=== PATIENT | female | born 1945 | race Caucasian/White ===

== ENCOUNTER → 2024-07-10 13:26 | Outpatient (REF) | payer MEDICARE, SELFPAY | LOC: HWRAD 13:26 | PROVIDERS: ATTENDING PHYSICIAN Internal Medicine Critical Care Medicine | DX: R91.1 Solitary pulmonary nodule (principal); Z01.812 Encounter for preprocedural laboratory examination | CPT/HCPCS: 71250 ==

== ENCOUNTER 2024-07-16 17:56 | Inpatient (IN) | payer MEDICARE, SELFPAY ==
[2024-07-10 16:55] LABS: INR 1.06; PT 13.9 Sec (11.4-14.6)
[2024-07-10 16:56] LABS: APTT 34.1 Sec (23.4-35.0)
[2024-07-16] VITALS (20 sets, daily range): BP systolic 104–178; BP diastolic 64–119; BMI 32.8
[2024-07-16] MEDS: DUONEB 3 ML INH ×2 (15:00→19:23)
[2024-07-16] MEDS: SOLU-MEDROL PF 40 MG IV (16:13)
--- NOTE | 2024-07-16 16:14 | SUR.PHASEI ---
Patient cleared for transfer to [facility] by Dr Richardson. Sats borderline 89-92. Patient is o2 dependant, on her baseline of 4/L. Patient also seen by Dr Jackman. Batsheva newsome RN BSN,.
[2024-07-16] MEDS: VENTOLIN NEBULES 2.5 MG INH (16:21)
--- NOTE | 2024-07-16 16:58 | W.PN.UPDATE ---
Update Note
Progress Note Update
Pt underwent robotic bronchoscopy today for concerning RLL nodule with mediastinal lymphadenopathy. Robotic bronch had no immediate complications, however post procedure the pt was more SOB and requiring up to 5L/min with sats low 90s. Daughter
updated at bedside, and all questions were answered. The daughter would feel more comfortable if Donna was monitored overnight. Call made out to admitting hospitalist, Dr. Patterson, who will take care of admission. Of note, post procedure CXR
without PTX. Pulmonary service to be consulted and we will follow along.
--- NOTE | 2024-07-16 17:03 | HPS.HSE ---
Family Physician
-
Family Physician: NO INTERVIEW UNKNOWN
Chief Complaint
-
Hypoxia with SOB post procedure
History of Present Illness
78 years old female who underwent robotic bronchoscopy for right lower lung nodule with mediastinal for neuropathy by Dr. Brink on July 16, 2024. Postprocedure, patient experienced shortness of breath and required mid flow oxygen from her
baseline 3 to 4 L at home. Patient currently in postprocedure unit, she denies chest pain or tightness. She admitted to shortness of breath at times but not currently. She also reported infrequent dizzy spells. She reported history of falls,
last fall was on June 26, 2024 with no significant injury. Patient reported that her falls always related to feeling dizzy with head spinning sensation.
Patient has history of COPD. Postprocedure chest radiography did not show pneumothorax. Currently her oxygen saturation is 96% on 4 L which she seems back to her baseline.
Medical History
Past Medical History
Past Medical History: Reports Other (COPD, gastric ulcer, insomnia, ambulatory dysfunction, heart failure, hypertension, GERD, bradycardia, depression, anxiety disorder, chronic hypoxic respiratory failure)
Past Surgical History: Reports Other (No recent major surgery)
Social History
Tobacco: Former Smoker
Alcohol: None
Drug: None
Living: [facility]
Employment: Retired
Family History
Family History: Other (Mother had hypertension, sister had lung cancer, father had melanoma.)
Allergies / Home Medications
Allergies reflects when Allergies were last updated in [facility].
Home Medications with original date entered in [facility]
Allergy/Medication List:
Allergies
Allergy/AdvReac Type Severity Reaction Status Date / Time
No Known Allergies Allergy Verified 07/16/24 11:21
Home Medications
acetaminophen 325 mg tablet 650 mg PO Q6H PRN pain 07/11/24
albuterol sulfate 5 mg/mL(0.5 %) solution for nebulization 2.5 mg inhalation TID 07/11/24
albuterol sulfate 90 mcg/actuation aerosol inhaler (Ventolin HFA) 1 inh inhalation Q6H PRN shortness of breath 07/11/24
amlodipine 2.5 mg tablet 2.5 mg PO HS 07/11/24
aspirin 81 mg capsule 81 mg PO DAILY 07/11/24
atorvastatin 20 mg tablet 20 mg PO HS 07/11/24
bisacodyl 10 mg rectal suppository (Dulcolax (bisacodyl)) 10 mg AR DAILY PRN constipation 07/11/24
fluticasone fur. 200 mcg-umeclid 62.5 mcg-vilant 25 mcg inhalat.powder (Trelegy Ellipta) 1 inh inhalation DAILY 07/11/24
fluticasone propionate 50 mcg/actuation nasal spray,suspension 1 spray intranasal DAILY 07/11/24
furosemide 20 mg tablet 20 mg PO DAILY 07/11/24
guaifenesin 600 mg tablet, extended release 12 hr (Mucinex) 600 mg PO BID 07/11/24
hydromorphone 2 mg tablet 2 mg PO Q12H severe pain 07/11/24
losartan 100 mg tablet 100 mg PO DAILY 07/11/24
magnesium hydroxide 400 mg/5 mL oral suspension (Milk of Magnesia) 400 mg PO PRN PRN constipation 07/11/24
magnesium oxide 400 mg PO DAILY 07/11/24
meclizine 25 mg tablet 25 mg PO TID 07/11/24
melatonin 3 mg tablet 6 mg PO HS PRN sleep 07/11/24
pantoprazole 40 mg tablet,delayed release 40 mg PO BID 07/11/24
sertraline 100 mg tablet 100 mg PO DAILY 07/11/24
sertraline 25 mg tablet 25 mg PO DAILY 07/11/24
sodium phosphates 19 gram-7 gram/118 mL enema (Fleet Enema) 118 ml AR PRN PRN constipation 07/11/24
Review of Systems
-
History Source: Patient
A 12 point ROS was completed and negative except as noted: Yes
Constitutional: Denies Fever or Chills
EENT: Denies Sore Throat
Respiratory: Reports Trouble Breathing; Denies Cough
Cardiac: Denies Chest Pain
Abdomen/GI: Denies Abdominal Pain
: Reports Incontinence; Denies Dysuria
Musculoskeletal: Denies Muscle Stiffness or Edema
Neurological: Reports Dizzy (chronic upon ambulation at [facility] ); Denies Numbness
Endocrine: Denies Temp Intolerance
Hematologic/Lymphatic: Denies Bruising
Psych: Denies Panic Disorder
Physical Exam
Vital Signs
Vital Signs
Temp Pulse Resp BP Pulse Ox
97.9 F 81 24 163/64 92
07/16/24 15:15 07/16/24 16:59 07/16/24 16:59 07/16/24 16:59 07/16/24 16:59
Physical Exam
General: No Apparent Distress and Comfortable
HEENT: Moist mucous membranes and Atraumatic
Respiratory: Other (Good air entry bilaterally, mild expiratory wheezes heard at the bases)
Cardiac: S1/S2 and Regular Rhythm
GI: Soft and Non Tender
Genito-urinary: No costovertebral tender; No Johnston
Musculoskeletal: No Clubbing, No Cyanosis and No Edema
Skin: Warm; No Jaundice
Neuro: AO x 3 and Nonfocal/grossly intact
Psych: Calm and Intact Judgment/Insight
Laboratory Results
-
Laboratory Results
PT 13.9 Sec (11.4-14.6) 07/10/24 13:31
INR 1.06 07/10/24 13:31
APTT 34.1 Sec (23.4-35.0) 07/10/24 13:31
Impression/Plan
-
78 years old female who experienced respiratory distress post bronchoscopy procedure
#Acute respiratory distress
Admit the patient to the hospital. Continue telemetry monitoring. Continue oxygen monitoring. Currently she seems back to her baseline with 96% on 4 L. She was given intravenous Solu-Medrol. Will reassess for need for further steroid therapy.
Will continue nebulizer therapy.
# History of falls. Will do PT/OT. Patient was getting physical therapy. She is [facility] living [facility] at senior care
# History of chronic hypoxic respiratory failure/centrilobular emphysema/former smoker
#History of insomnia
#History of GERD
#History of depression/anxiety disorder
#Primary hypertension
Patient had cardiac preprocedure evaluation by her fitting room inspector, according to the note, echocardiogram in September 2023 showed normal LV function, no significant valvular heart disease.
#History of GI bleeding with severe anemia that needed transfusion, diagnosed with gastric ulcer/esophagitis.
#History of hyperlipidemia
Total time spent to see the patient, examine the patient on the floor, review data and lab results, discuss treatment plan with patient, daughter, pulmonary doctor, nursing staff around 75 minutes
--- NOTE | 2024-07-16 19:01 | PTCARENOTE ---
1834- Pt received from same day surgery via stretcher.
[2024-07-16] MEDS: LIPITOR 20 MG PO (20:15)
[2024-07-16] MEDS: HEPARIN 5000 UNITS SC (20:16)
[2024-07-16] MEDS: PROTONIX 40 MG PO (20:16)
[2024-07-16] MEDS: NORVASC 2.5 MG PO (21:41)
[2024-07-16] MEDS: MELATONIN 3 MG PO (21:51)
[2024-07-17 03:15] VITALS: BP 146/67
[2024-07-17] MEDS: DUONEB 3 ML INH ×3 (07:39→15:27)
[2024-07-17 07:46] VITALS: BP 123/89
[2024-07-17] MEDS: HEPARIN 5000 UNITS SC (08:15)
[2024-07-17] MEDS: PROTONIX 40 MG PO (08:16)
[2024-07-17] MEDS: COZAAR 100 MG PO (08:16)
[2024-07-17] MEDS: LASIX 20 MG PO (08:17)
[2024-07-17] MEDS: ZOLOFT 25 MG PO (08:17)
--- NOTE | 2024-07-17 09:15 | W.PN.HOSP.TC ---
Addendum entered and electronically signed by Rosalba Dee MD 07/18/24 06:45:
Addendum
CBC showed leukocytosis, reactive. No fever.
BMP showed mild hypercalcemia. Normal renal function. Patient will continue to follow-up with primary care doctor.
Patient was seen by pulmonary doctor, okay for discharge. Discussed with nursing staff. Patient remained hemodynamically stable
End
Original Note:
Today's Communication/Plan
-
dc
Assessment / Plan
Assessment / Plan
Physical Exam
General: No Apparent Distress and Comfortable
HEENT: Moist mucous membranes and Atraumatic
Respiratory: Other (Good air entry bilaterally, mild expiratory wheezes heard at the bases)
Cardiac: S1/S2 and Regular Rhythm
GI: Soft and Non Tender
Genito-urinary: No costovertebral tender; No Johnston
Musculoskeletal: No Clubbing, No Cyanosis and No Edema
Skin: Warm; No Jaundice
Neuro: AO x 3 and Nonfocal/grossly intact
Psych: Calm and Intact Judgment/Insight
8 years old female who experienced respiratory distress post bronchoscopy procedure
#Acute respiratory distress
Resolved
Back to baseline
# History of falls. Will do PT/OT. Patient was getting physical therapy. She [facility] at [facility]
# History of chronic hypoxic respiratory failure/centrilobular emphysema/former smoker
#History of insomnia
#History of GERD
#History of depression/anxiety disorder
#Primary hypertension
Patient had cardiac preprocedure evaluation by her retail department manager, according to the note, echocardiogram in September 2023 showed normal LV function, no significant valvular heart disease.
#History of GI bleeding with severe anemia that needed transfusion, diagnosed with gastric ulcer/esophagitis.
#History of hyperlipidemia
Total dc time spent to see the patient, examine the patient on the floor, review data and lab results, discuss discharge plan with patient, daughter, nursing staff around 65 minutes
Anticipated Discharge: Today
Subjective/Interval History
-
Date of Service: July 17, 2024
Denies sob or chest pain
Objective Data
-
Vital Signs:
Vital Signs
Temp Pulse Resp BP Pulse Ox
97.8 F 78 18 123/89 98
07/17/24 07:46 07/17/24 07:46 07/17/24 07:46 07/17/24 07:46 07/17/24 07:46
I&O
07/16/24 07/17/24 07/18/24
06:59 06:59 06:59
Intake Total 288 / 288
Output Total 100 / 100
Balance 188 / 188
[2024-07-17 10:35] LABS: Hematocrit 37.1 % (37.0-47.0); Hemoglobin 11.3 g/dL (12.0-16.0); Mean Corp Hgb Conc. 30.5 g/dL (33.0-37.0); Mean Corpuscular Hgb 26.3 pg (27.0-31.0); Mean Corpuscular Volume 86.5 fL (81.0-99.0); Mean Platelet Volume 9.5 fL (7.4-10.4); Platelet Count 302 10^3/uL (130-400); Red Blood Cell Count 4.29 10^6/uL (4.20-5.40); Red Cell Dist. Width 17.2 % (11.5-14.5); White Blood Cell Count 14.7 10^3/uL (4.8-10.8)
[2024-07-17 11:05] VITALS: BP 140/66; PULSE 78; O2SAT 99
[2024-07-17 11:07] VITALS: BP 140/66; PULSE 79; O2SAT 98
[2024-07-17 11:12] LABS: ALT (SGPT) 17 U/L (0-35); AST (SGOT) 22 U/L (14-36); Alkaline Phosphatase 128 U/L (38-126); Blood Urea Nitrogen 15 mg/dl (7-17); Calcium 10.5 mg/dl (8.4-10.2); Carbon Dioxide 26 mmol/L (22-30); Chloride 102 mmol/L (98-107); Estimated Creatinine Clearance 67 ml/min; Glucose 148 mg/dl (70-99); Potassium 4.5 mmol/L (3.5-5.1); Sodium 141 mmol/L (135-145); Total Bilirubin 0.3 mg/dl (0.2-1.3); eGFR > 60.00
[2024-07-17 11:43] VITALS: BP 103/69
--- NOTE | 2024-07-17 12:43 | CON.PUL ---
Consultation
Consultation Request
Date/Time Consultation Requested: 07/17/2024
Date/Time Consultation Performed: 07/17/2024
Requesting Provider: Dr. Dee
Performing Provider: Dr. Morales Ashley
Reason for Consultation: hypoxemia post procedure
Medical History
-
History of Present Illness:
78-year-old woman with severe COPD known to our office. Electively underwent bronchoscopy with transbronchial biopsies, robotic-assisted of lung nodule and mediastinal lymphadenopathies. No immediate complications post procedure. An hour or 2
later developed hypoxemia, coughing. She was admitted for close observation.
This morning patient feels better. Continues to have some coughing. No significant phlegm production or hemoptysis.
REQUIREMENTS improved.
Back to her baseline.
denies any chest pain.
Past Medical History
Past Medical History: Other (see assessment and plan)
Social History
Tobacco: Former Smoker
Alcohol: None
Living: [facility]
Family History
Family History: Reviewed & Not Pertinent
Allergies / Home Medications
Allergies
Allergy/AdvReac Type Severity Reaction Status Date / Time
No Known Allergies Allergy Verified 07/16/24 11:21
Home Medications
�Medication �Instructions �Recorded �Confirmed �Last Taken �Type
acetaminophen 325 mg tablet 650 mg PO Q6H PRN pain 07/11/24 07/16/24 06/10/24 10:58 History
albuterol sulfate 5 mg/mL(0.5 %) 2.5 mg inhalation TID 07/11/24 07/16/24 Unknown History
solution for nebulization Lung/Breathing Issues
albuterol sulfate 90 mcg/actuation 1 inh inhalation Q6H PRN shortness 07/11/24 07/16/24 Unknown History
aerosol inhaler (Ventolin HFA) of breath
amlodipine 2.5 mg tablet 2.5 mg PO HS Blood Pressure 07/11/24 07/16/24 07/15/24 20:16 History
aspirin 81 mg capsule 81 mg PO DAILY Blood Clot 07/11/24 07/16/24 07/08/24 09:40 History
Prevention/Tx
atorvastatin 20 mg tablet 20 mg PO HS High Cholesterol 07/11/24 07/16/24 07/15/24 20:16 History
bisacodyl 10 mg rectal suppository 10 mg AR DAILY PRN constipation 07/11/24 07/16/24 Unknown History
(Dulcolax (bisacodyl))
fluticasone fur. 200 mcg-umeclid 1 inh inhalation DAILY 07/11/24 07/16/24 07/16/24 09:19 History
62.5 mcg-vilant 25 mcg Lung/Breathing Issues
inhalat.powder (Trelegy Ellipta)
fluticasone propionate 50 1 spray intranasal DAILY Allergies 07/11/24 07/16/24 07/15/24 08:19 History
mcg/actuation nasal
spray,suspension
furosemide 20 mg tablet 20 mg PO DAILY Fluid 07/11/24 07/16/24 07/15/24 06:39 History
Retention/Swelling
guaifenesin 600 mg tablet, 600 mg PO BID Cough 07/11/24 07/16/24 Unknown History
extended release 12 hr (Mucinex)
hydromorphone 2 mg tablet 2 mg PO Q12H severe pain 07/11/24 07/16/24 Unknown History
losartan 100 mg tablet 100 mg PO DAILY Blood Pressure 07/11/24 07/16/24 07/15/24 08:19 History
magnesium hydroxide 400 mg/5 mL 400 mg PO PRN PRN constipation 07/11/24 07/16/24 Unknown History
oral suspension (Milk of Magnesia)
magnesium oxide 400 mg PO DAILY Electrolyte 07/11/24 07/16/24 07/15/24 08:19 History
Repletion
meclizine 25 mg tablet 25 mg PO TID DIZZINESS 07/11/24 07/16/24 07/15/24 19:28 History
melatonin 3 mg tablet 6 mg PO HS PRN sleep 07/11/24 07/16/24 07/08/24 21:27 History
pantoprazole 40 mg tablet,delayed 40 mg PO BID Gastrointestinal Issue 07/11/24 07/16/24 07/16/24 06:16 History
release
sertraline 100 mg tablet 100 mg PO DAILY Mental 07/11/24 07/16/24 07/16/24 09:19 History
Health/Anxiety
sertraline 25 mg tablet 25 mg PO DAILY Mental 07/11/24 07/16/24 07/16/24 09:19 History
Health/Anxiety
sodium phosphates 19 gram-7 118 ml AR PRN PRN constipation 07/11/24 07/16/24 Unknown History
gram/118 mL enema (Fleet Enema)
Review of Systems
-
History Source: Patient
All other systems: Negative unless noted
Vitals / Labs / Diagnostic Testing
Vital Signs
Temp Pulse Resp BP Pulse Ox
98.4 F 86 16 103/69 96
07/17/24 11:43 07/17/24 11:43 07/17/24 11:43 07/17/24 11:43 07/17/24 11:43
Lab Data
07/17/24 10:19
07/17/24 10:19
Microbiology
07/16/24 14:21 Bronch Right Lower Lobe Respiratory Culture - Preliminary
Usual Respiratory Sheri
07/16/24 14:21 Bronch Right Lower Lobe Gram Stain - Preliminary
Diagnostic Testing:
Physical Exam
-
HEENT: Normocephalic
Cardiovascular: S1/S2
Respiratory: Clear and Non-Labored Respirations
GI: Soft and Non Distended
Neurology: Awake, Alert, Oriented, AO x 3 and No Motor Deficits
General: Comfortable
Assessment
-
Acute hypoxemia on chronic postprocedure.
Chest x-ray, suspect bibasilar atelectasis.
Minimal acute exacerbation post procedure.
Conditions present for admission:
Lung nodule status post Bronchoscopic biopsy 07/16/2024. Results pending.
COPD/emphysema-severe. With Dr. Brink
Former tobacco use
Restrictive lung disease due to obesity
Chronic hypoxemic respiratory failure
Obesity
Assessment and plan:
Patient appears to be back to baseline
bronchospastic on exam
I explained her that her cough will remain a few days after the procedure.
There is no evidence for infection
Continue inhalers
Nebulizers as needed
Advised to use incentive spirometry as she has bibasilar atelectasis likely postprocedure/recovering from sedation.
Her mental status is back to baseline.
Patient has a strong cough effort
Continue oxygen supplementation to maintain pulse ox above 90%
I agree with discharge planning
My office will call her daughter to hopefully get her in our office within a week.
--- NOTE | 2024-07-17 16:16 | CM ---
Reviewed chart, placed a call to patient's daughter to obtain information for assessment. Received message from attending that patient is medically cleared for discharge.
Patient's daughter stated that patient is from [facility]. She needs assist with all ADLs and personal care. She uses a w/c. She is a fall risk. She is on continuous o2. Patient's daughter stated that she wants for her to return to [facility] and
[facility].
Placed a call to [facility] and spoke with Dung who is an RN familiar with patient. He stated that they can take her back. # For report [phone] and fax [phone].
Medical necessity completed as well as transfer sheet.
IMM on chart.
Plan: Case management will continue to follow and assist with discharge planning. Back to LTC
[2024-07-17 16:24] VITALS: BP 143/94
[2024-07-17] MEDS: LIPITOR 20 MG PO (17:30)
--- NOTE | 2024-07-18 06:39 | W.DCSUMMARY ---
Discharge Summary
Discharge Data
Date of Admission: 07/16/24
Date of Discharge: 07/17/24
-
Pending Results: No
Hospital Course
78 years old female was admitted to the hospital after experiencing respiratory distress and postprocedure recovery unit. Patient had lung nodule and underwent bronchoscopy with biopsy by Dr. Brink. Postprocedure, patient experienced worsening
hypoxia and shortness of breath. Post procedure chest radiography did not show pneumothorax. Patient was given 1 dose of intravenous steroid and nasal oxygen. Patient had history of chronic hypoxic respiratory failure. Patient was on home oxygen
around 4 L. Her oxygen requirement subsequently came down to baseline. Patient was admitted for overnight observation in the hospital. She remained hemodynamically stable without further respiratory complications. She was followed by pulmonary
doctor. Pulmonary doctor discussed with patient and recommended to use incentive spirometry due to the presence of bibasilar atelectasis. Her mental status remained at baseline. She had no evidence of infection. She was maintained on inhalation
therapy. Patient was evaluated by physical therapy. Patient was discharged back to intermediate.
Discharge Plan
-
Patient Disposition: Residential/SNF
Discharge Diagnosis/Procedures: Respiratory distress post procedure, resolved
Diet: As tolerated
Referrals:
Ronn Brink MD [Active] - in one week
UNKNOWN,NO INTERVIEW [Family Provider] -
Prescriptions:
Continued
acetaminophen 325 mg Tablet
650 mg PO Q6H PRN (Reason: pain)
atorvastatin 20 mg Tablet
20 mg PO HS
sertraline 100 mg Tablet
100 mg PO DAILY
amlodipine 2.5 mg Tablet
2.5 mg PO HS
melatonin 3 mg Tablet
6 mg PO HS PRN (Reason: sleep)
magnesium hydroxide [Milk of Magnesia] 400 mg/5 mL Suspension
400 mg PO PRN PRN (Reason: constipation)
Rx Instructions:
If not bowel movement for 3 days
bisacodyl [Dulcolax (bisacodyl)] 10 mg Suppository
[address] DAILY PRN (Reason: constipation)
pantoprazole 40 mg Tablet,Delayed Release (Dr/Ec)
40 mg PO BID
Fleet Enema 19-7 gram/118 mL Enema
[address] PRN PRN (Reason: constipation)
sertraline 25 mg Tablet
25 mg PO DAILY
Rx Instructions:
Take with the 100 mg tablet of sertraline
furosemide 20 mg Tablet
20 mg PO DAILY
albuterol sulfate [Ventolin HFA] 90 mcg/actuation Hfa Aerosol Inhaler
1 inh INHALATION Q6H PRN (Reason: shortness of breath)
losartan 100 mg Tablet
100 mg PO DAILY
albuterol sulfate 5 mg/mL Solution For Nebulization
2.5 mg INHALATION TID
fluticasone propionate 50 mcg/actuation Sanders,Suspension
1 spray INTRANASAL DAILY
guaifenesin [Mucinex] 600 mg Tablet Extended Release 12hr
600 mg PO BID
magnesium oxide 400 mg magnesium Tablet
400 mg PO DAILY
Trelegy Ellipta 200-62.5-25 mcg Blister With Device
1 inh INHALATION DAILY
aspirin 81 mg Capsule
81 mg PO DAILY
Changed
hydromorphone 2 mg Tablet
2 mg PO BIDPRN PRN (Reason: severe pain) Qty: 0 0RF
meclizine 25 mg Tablet
25 mg PO TIDPRN PRN (Reason: dizziness) Qty: 0 0RF
Discharge Orders:
Discharge Patient (As Directed); Ordered 07/17/24
Ordered By: Rosalba Dee
Discharge Date and Time
Discharge Date/Time: 07/17/24 18:59
Print Language: ROMANIAN
== END 2024-07-17 18:59 | DRG 167 ==
LOC: 3 WEST ACU 17:56
PROVIDERS: ADMITTING PHYSICIAN Internal Medicine; CONSULT PHYSICIAN Internal Medicine Critical Care Medicine
PROC: 0BDF8ZX Extraction of Right Lower Lung Lobe, Via Natural or Artificial Opening Endoscopic, Diagnostic (ICD-10-PCS; 2024-07-16)
PROC: 0BBF8ZX Excision of Right Lower Lung Lobe, Via Natural or Artificial Opening Endoscopic, Diagnostic (ICD-10-PCS; 2024-07-16)
PROC: 0B9F8ZX Drainage of Right Lower Lung Lobe, Via Natural or Artificial Opening Endoscopic, Diagnostic (ICD-10-PCS; 2024-07-16)
PROC: 07D78ZX Extraction of Thorax Lymphatic, Via Natural or Artificial Opening Endoscopic, Diagnostic (ICD-10-PCS; 2024-07-16)
DX: J95.821 Acute postprocedural respiratory failure (principal); C34.31 Malignant neoplasm of lower lobe, right bronchus or lung; I42.9 Cardiomyopathy, unspecified; J96.11 Chronic respiratory failure with hypoxia; C77.1 Secondary and unspecified malignant neoplasm of intrathoracic lymph nodes; J98.11 Atelectasis; J43.2 Centrilobular emphysema; I11.0 Hypertensive heart disease with heart failure; I50.9 Heart failure, unspecified; E66.9 Obesity, unspecified; J44.89 Other specified chronic obstructive pulmonary disease; F32.A Depression, unspecified; Z99.81 Dependence on supplemental oxygen; R91.1 Solitary pulmonary nodule; Z82.49 Family history of ischemic heart disease and other diseases of the circulatory system; J98.4 Other disorders of lung; E78.00 Pure hypercholesterolemia, unspecified; F41.9 Anxiety disorder, unspecified; G47.00 Insomnia, unspecified; K21.9 Gastro-esophageal reflux disease without esophagitis; Z79.82 Long term (current) use of aspirin; Z79.899 Other long term (current) drug therapy; Z87.891 Personal history of nicotine dependence; Z87.19 Personal history of other diseases of the digestive system; Z87.11 Personal history of peptic ulcer disease; Z91.81 History of falling; Z80.1 Family history of malignant neoplasm of trachea, bronchus and lung; Z80.8 Family history of malignant neoplasm of other organs or systems
CPT/HCPCS: 88172; 88173; 88305; 36415; 71045; 76000; 80053; 85027; 85610; 85730; 87015; 87070; 87077; 87102; 87106; 87107; 87116; 87185; 87205; 88112; 88177; 88333; 88341; 88342; 94640; 97163; 97167; C1887